=== PATIENT | male | born 1960 | race African-American/Black ===

== ENCOUNTER 2019-11-12 09:06 | Emergency (ER) | payer SELFPAY ==
[~2019-11-12] VITALS: Ht 170.2 cm; Wt 63.0 kg
[2019-11-12 10:31] LABS: BASOPHILS % 0.8 % (0.0-2.0); EOSINOPHILS % 1.7 % (0.0-5.0); HEMATOCRIT. 48.1 % (42.0-52.0); HEMOGLOBIN. 16.6 g/dL (14.0-18.0); LYMPHOCYTES % 32.5 % (20.0-50.0); MEAN CORPUSCULAR HEMOGLOBIN 29.9 pg (28.0-32.0); MEAN CORPUSCULAR VOLUME 86.7 fL (80.0-94.0); MEAN PLATELET VOLUME 8.2 fl (7.4-10.4); MONOCYTES % 8.2 % (2.0-8.0); NEUTROPHILS % 56.8 % (40.0-76.0); PLATELET 281 x1000/uL (130-400); RED BLOOD CELL COUNT 5.55 mill/uL (4.7-6.1); RED CELL DISTRIBUTION WIDTH 13.8 % (11.6-14.6)
[2019-11-12 10:38] LABS: CHLORIDE 104 mEq/L (98-107)
[2019-11-12 10:42] LABS: ETHANOL BLOOD < 10 mg/dL
[2019-11-12 12:32] VITALS: BP 145/65
== END 2019-11-12 12:39 | disposition home or self-care (01) ==
LOC: ER 09:06
DX: R56.9 Unspecified convulsions (principal)
CPT/HCPCS: 36415; 80053; 80320; 82962; 85025; 99285; G0480